=== PATIENT | female | born 1950 | race African-American/Black ===

== ENCOUNTER → 2020-05-28 16:10 | Outpatient (CLI) | payer MEDICARE, SELFPAY ==
--- NOTE | ~2020-05-28 | XR_ITS ---
EXAMINATION: XR shoulder RT min 2V INDICATION: Vitamin D deficiency, multiple joint pain TECHNIQUE: Two views of the right shoulder are submitted. COMPARISON: None FINDINGS: Normal alignment. No fracture. There is mild osteoarthritis of the glenohumeral and acromio clavicular joints. Soft tissues are unremarkable. IMPRESSION: 1. No acute osseous abnormality. Reviewed, dictated and finalized at location A.
--- NOTE | ~2020-05-28 | XR_ITS ---
EXAMINATION: XR wrist RT 2V INDICATION: Vitamin D deficiency, multiple joint pain TECHNIQUE: Two views of the right wrist are obtained. COMPARISON: None available FINDINGS: Bone alignment is normal. There is no fracture. Mild osteoarthritis is noted at the metacar pophalangeal joints. Soft tissues are unremarkable. IMPRESSION: 1. No acute osseous abnormality. Reviewed, dictated and finalized at location A.
--- NOTE | ~2020-05-28 | XR_ITS ---
EXAMINATION: XR foot LT 2V INDICATION: Vitamin D deficiency, multiple joint pain TECHNIQUE: Two views of the left foot are obtained. COMPARISON: None available FINDINGS: Bone alignment is normal. There is no fracture. Mild osteoarthritis is noted in the midfoot , multiple interphalangeal joints, and at the first metatarsophalangeal joint. A plantar calcaneal en thesophyte is noted. There is calcification of the Achilles tendon. IMPRESSION: 1. No acute osseous abnormality. Reviewed, dictated and finalized at location A.
--- NOTE | ~2020-05-28 | XR_ITS ---
EXAMINATION: XR hand LT 2V INDICATION: Vitamin D deficiency, multiple joint pain TECHNIQUE: Two views of the left hand are obtained. COMPARISON: None available FINDINGS: Bone alignment is normal. There is no fracture. Mild polyarticular osteoarthritis is seen i nvolving the interphalangeal joints and metacarpophalangeal joints. Soft tissues are unremarkable. IMPRESSION: 1. No acute osseous abnormality. Reviewed, dictated and finalized at location A.
--- NOTE | ~2020-05-28 | XR_ITS ---
EXAMINATION: XR ankle LT 2V DATE: 05/28/2020 17:01 INDICATION: Vitamin D deficiency, multiple joint pain TECHNIQUE: AP and lateral views of the left ankle are obtained.. COMPARISON: None. FINDINGS: Bone alignment is normal. There is no fracture. A plantar calcaneal enthesophyte is noted. There is calcification of the Achilles tendon. Mild osteoarthritis is noted in the midfoot. IMPRESSION: 1. No acute osseous abnormality. Reviewed, dictated and finalized at location A.
--- NOTE | ~2020-05-28 | XR_ITS ---
EXAMINATION: XR shoulder LT min 2V INDICATION: Vitamin D deficiency, multiple joint pain TECHNIQUE: Two views of the left shoulder are obtained. COMPARISON: None available FINDINGS: Bone alignment is normal. There is no fracture. There is moderate osteoarthritis of the gle nohumeral joint and mild osteoarthritis of the acromioclavicular joint. The soft tissues are unremark able. IMPRESSION: 1. No acute osseous abnormality. Reviewed, dictated and finalized at location A.
--- NOTE | ~2020-05-28 | XR_ITS ---
EXAMINATION: XR ankle RT 2V INDICATION: Vitamin D deficiency, multiple joint pain TECHNIQUE: AP and lateral views of the right ankle are obtained. COMPARISON: None available FINDINGS: Bone alignment is normal. There is no fracture. A plantar calcaneal enthesophyte is noted. There is calcification of the Achilles tendon. Mild osteoarthritis is noted in the midfoot. IMPRESSION: 1. No acute osseous abnormality. Reviewed, dictated and finalized at location A.
--- NOTE | ~2020-05-28 | XR_ITS ---
EXAMINATION: XR foot RT 2V INDICATION: Vitamin D deficiency, multiple joint pain TECHNIQUE: Two views of the right foot are obtained. COMPARISON: None available FINDINGS: Bone alignment is normal. There is no fracture. Mild osteoarthritis is noted in the midfoot and in multiple interphalangeal joints. A plantar calcaneal enthesophyte is noted. There is minimal calcification of the Achilles tendon. IMPRESSION: 1. No acute osseous abnormality. Reviewed, dictated and finalized at location A.
--- NOTE | ~2020-05-28 | XR_ITS ---
EXAMINATION: XR wrist LT 2V INDICATION: Multiple joint pain, vitamin D deficiency TECHNIQUE: Two views of the left wrist are obtained. COMPARISON: None available FINDINGS: There is no fracture, dislocation, or subluxation. The bones, soft tissues, and joint space s are normal. IMPRESSION: 1. No acute osseous abnormality. Reviewed, dictated and finalized at location A.
--- NOTE | ~2020-05-28 | XR_ITS ---
EXAMINATION: XR sacroiliac joints min 3V INDICATION: Vitamin D deficiency, multiple joint pain TECHNIQUE: Three views of the sacroiliac joints are obtained. COMPARISON: None available FINDINGS: Bone alignment is normal. There is no fracture. No abnormal sclerosis or erosion is identif ied. There is mild osteoarthritis of the hips and moderate osteoarthritis at the pubic symphysis. IMPRESSION: 1. No acute osseous abnormality. Reviewed, dictated and finalized at location A.
--- NOTE | ~2020-05-28 | XR_ITS ---
EXAMINATION: XR hand RT 2V INDICATION: Vitamin D deficiency, multiple joint pain TECHNIQUE: Two views of the right hand are obtained. COMPARISON: None available FINDINGS: Bone alignment is normal. There is no fracture. Mild polyarticular osteoarthritis is seen i nvolving the interphalangeal joints and metacarpophalangeal joints. Soft tissues are unremarkable. IMPRESSION: 1. No acute osseous abnormality. Reviewed, dictated and finalized at location A.
== END ==
PROVIDERS: PCP Internal Medicine Endocrinology, Diabetes & Metabolism; Visit Provider Internal Medicine Rheumatology
DX: M25.50 Pain in unspecified joint (principal); M79.10 Myalgia, unspecified site; R53.81 Other malaise; R53.83 Other fatigue
CPT/HCPCS: 72202; 73030; 73100; 73120; 73600; 73620

== ENCOUNTER → 2021-09-07 08:34 | Outpatient (CLI) | payer MEDICARE, SELFPAY ==
--- NOTE | ~2021-09-07 | XR_ITS ---
XR shoulder RT min 2V DATE: 09/07/2021 09:19 INDICATION: Right shoulder pain TECHNIQUE: 4 views COMPARISON: 05/08/2020 right shoulder FINDINGS: There is diffuse osteopenia. Prominent degenerative spurring of the included midthoracic spine is noted. There is prominent osteoarthritic spurring of the right humeral head. There is degenerative spurring at the right acromioclavicular joint. No fracture or dislocation, periosteal reaction or bone destruction or abnormal right shoulder soft t issue calcification is noted. IMPRESSION: Osteopenia Osteoarthritis at the right glenoid humeral joint Degenerative change at the right acromioclavicular joint Reviewed, dictated and finalized at location A. P 3 ARMAMENT/ORDNANCE IMA TECHNICIAN
--- NOTE | ~2021-09-07 | XR_ITS ---
EXAMINATION: XR knee RT 3V DATE: 09/07/2021 09:19 INDICATION: Right knee pain. TECHNIQUE: 3 views of right knee including standing views were obtained. COMPARISON: None. FINDINGS: Bone alignment is normal. No fracture. There is moderate osteoarthritis of medial compartme nt and mild osteoarthritis of lateral and patellofemoral compartments. No knee joint effusion. IMPRESSION: 1. Moderate right knee osteoarthritis. Reviewed, dictated and finalized at location A. ING ASSOCIATE
--- NOTE | ~2021-09-07 | XR_ITS ---
EXAMINATION: XR shoulder LT min 2V DATE: 09/07/2021 09:19 INDICATION: Left shoulder pain. TECHNIQUE: 4 views of left shoulder were obtained. COMPARISON: None. FINDINGS: Bone alignment is normal. No fracture. There is moderate osteoarthritis of glenohumeral raeann nt and mild osteoarthritis of acromioclavicular joint. IMPRESSION: 1. Polyarticular osteoarthritis. Reviewed, dictated and finalized at location A. [employer]TER
== END ==
PROVIDERS: PCP Internal Medicine Endocrinology, Diabetes & Metabolism
DX: M25.561 Pain in right knee (principal); M25.512 Pain in left shoulder; M25.511 Pain in right shoulder; M85.88 Other specified disorders of bone density and structure, other site; M19.012 Primary osteoarthritis, left shoulder; M19.011 Primary osteoarthritis, right shoulder; M17.11 Unilateral primary osteoarthritis, right knee
CPT/HCPCS: 73030; 73562